=== PATIENT | female | born 1990 | race African-American/Black ===

== ENCOUNTER 2018-04-14 23:18 | Emergency (ER) | payer OTHER ==
[~2018-04-14] VITALS: Ht 162.6 cm; Wt 129.2 kg
[2018-04-15] MEDS ORDERED: LIDODERM 5% P1 PATCH TD (02:57)
[2018-04-15] MEDS ORDERED: NORCO 5/3251 TABLET PO (02:57)
[2018-04-15 03:22] VITALS: BP 126/63
== END 2018-04-15 03:24 | disposition home or self-care (01) ==
LOC: EME 23:18
DX: S00.83XA Contusion of other part of head, initial encounter (principal); S70.01XA Contusion of right hip, initial encounter; W18.2XXA Fall in (into) shower or empty bathtub, initial encounter; Y93.E1 Activity, personal bathing and showering; Y92.002 Bathroom of unspecified non-institutional (private) residence as the place of occurrence of the external cause; G43.909 Migraine, unspecified, not intractable, without status migrainosus
CPT/HCPCS: 70450; 72125; 73502; 99281; 99284